=== PATIENT | male | born 1960 | race Two or more races ===

== ENCOUNTER → 2017-10-25 | Outpatient (CLI) | payer MEDICARE, OTHER | END | disposition home or self-care (01) | LOC: Rad HDHVI 14:02 | PROVIDERS: ATTEND Internal Medicine Cardiovascular Disease | DX: E78.2 Mixed hyperlipidemia (principal) | CPT/HCPCS: 93306 ==

== ENCOUNTER → 2017-11-03 | Outpatient (CLI) | payer OTHER ==
[~2017-11-03] MED LIST: ADENOSINE 61 MG in GIVE UN-DILUTED 0 ML IV ONE; ADENOSINE 90 MG/30 ML INJ IV ONE
== END | disposition home or self-care (01) ==
LOC: Rad HDHVI 09:23
PROVIDERS: ATTEND Internal Medicine Cardiovascular Disease
DX: Z01.810 Encounter for preprocedural cardiovascular examination (principal); J44.9 Chronic obstructive pulmonary disease, unspecified; E78.2 Mixed hyperlipidemia
CPT/HCPCS: 78452; 93005; 96374; 96375; A9500; J0153

== ENCOUNTER → 2018-01-12 | Outpatient (CLI) | payer MEDICARE, OTHER ==
[~2018-01-12] MED LIST changes: -ADENOSINE 61 MG in GIVE UN-DILUTED 0 ML IV ONE; -ADENOSINE 90 MG/30 ML INJ IV ONE; +IOHEXOL 350 MG/ML 100ML IJ ONE
[2018-01-12 09:45] VITALS: BP 149/88
[2018-01-12 10:10] VITALS: BP 143/97
== END | disposition home or self-care (01) ==
LOC: Rad HDHVI 09:26
PROVIDERS: ATTEND Internal Medicine Cardiovascular Disease
DX: I71.4 Abdominal aortic aneurysm, without rupture (principal); I70.0 Atherosclerosis of aorta
CPT/HCPCS: 74175; 82565; G0463; Q9967

== ENCOUNTER → 2019-12-03 | Outpatient (CLI) | payer MEDICARE ==
[~2019-12-03] VITALS: Ht 175.3 cm; Wt 68.0 kg
[2019-12-03 11:26] LABS: Urine Blood Negative /uL (Negative); Urine Specific Gravity 1.006 (1.001-1.035)
[2019-12-03 11:27] LABS: Basophils # (auto) 0.1 uL; Basophils % (auto) 0.9 % (0.0-2.0); Eosinophils # (auto) 0.1 uL; Eosinophils % (auto) 1.4 % (0.0-7.0); Lymphocytes # (auto) 1.7 uL; Neutrophils # (auto) 3.5 uL; Nucleated Red Blood Cells % 0.2 %
[2019-12-03 11:38] LABS: Hemoglobin 16.6 g/dL (13.5-17.5); Lymphocytes % (auto) 29.3 % (10.0-50.0); Mean Corpuscular Hemoglobin 34.6 pg (28.0-32.0); Mean Corpuscular Hgb Conc. 34.6 g/dL (32.0-36.0); Mean Corpuscular Volume 100.1 fL (80.0-100.0); Monocytes # (auto) 0.5 uL; Monocytes % (auto) 8.1 % (0.0-12.0); Neutrophils % (auto) 60.3 % (37.0-80.0); Platelet Count (auto) 171 10^3/uL (140-450); Red Cell Distribution Width 15.3 % (11.8-14.3); White Blood Cell 5.9 10^3/uL (4.4-10.8)
[2019-12-03 11:50] LABS: Albumin 3.5 g/dL (3.4-5.0); Calcium 8.9 mg/dL (8.5-10.1); Potassium 4.4 mmol/L (3.5-5.1)
[2019-12-03 11:55] LABS: BUN/Creatinine Ratio 14.1; Bilirubin, Total 0.4 mg/dL (0.2-1.0); Total Protein 7.3 g/dL (6.4-8.2)
[2019-12-03 12:22] LABS: Free T4 (Free Thyroxine) 1.06 ng/dL (0.89-1.76); Prostate Specific Antigen 0.63 ng/mL (0.0-4.0)
== END | disposition home or self-care (01) ==
LOC: Rad HDHVI 09:05
PROVIDERS: ATTEND Internal Medicine Cardiovascular Disease
DX: I34.0 Nonrheumatic mitral (valve) insufficiency (principal); J44.9 Chronic obstructive pulmonary disease, unspecified; R07.89 Other chest pain; I10 Essential (primary) hypertension; E03.9 Hypothyroidism, unspecified; K90.9 Intestinal malabsorption, unspecified; C61 Malignant neoplasm of prostate; E29.1 Testicular hypofunction; N39.0 Urinary tract infection, site not specified; D51.9 Vitamin B12 deficiency anemia, unspecified; Z79.899 Other long term (current) drug therapy; Z95.5 Presence of coronary angioplasty implant and graft
CPT/HCPCS: 36415; 78452; 80053; 80061; 81003; 82306; 82607; 83036; 84153; 84403; 84439; 84443; 85025; 93017; 93306; 96374; A9500

== ENCOUNTER → 2019-12-04 | Outpatient (CLI) | payer MEDICARE ==
[2019-12-04 09:10] VITALS: BP 140/95
--- NOTE | 2019-12-04 09:10 | NUR ---
Discharge Instructions See e-MAR for any mediations given with this visit. Patient education given on disease process. Patient verbalized understanding. Previous labs reviewed. Patient discharged in stable condition with after care instructions and follow up appointment. EDUCATED PATIENT TO INCREASE WATER INTAKE VERBALIZED UNDERSTANDING Addendum: 12/04/19 at 0945 by YAMINI PARMAR RN [place] PT DISCHARGED AT [id number]
--- NOTE | 2019-12-04 09:15 | NUR ---
IV insertion IV access obtained, via clean sterile technique by inserting 20 gauge catheter at after attempt(s). IV secured properly. No trauma to site. Patient tolerated procedure well.
--- NOTE | 2019-12-04 09:33 | NUR ---
IV removal IV DC'd with sterile technique, catheter fully intact. Pressure dressing applied to site. Patient tolerated procedure well. Discharged with aftercare instructions per MD. NOTE:
[2019-12-04 09:36] VITALS: BP 132/91
== END | disposition home or self-care (01) ==
LOC: Rad HDHVI 09:03
PROVIDERS: ATTEND Internal Medicine Cardiovascular Disease
DX: M79.606 Pain in leg, unspecified (principal); I72.9 Aneurysm of unspecified site; M54.9 Dorsalgia, unspecified
CPT/HCPCS: 74175; G0463; Q9967

== ENCOUNTER → 2021-01-19 | Outpatient (CLI) | payer MEDICARE ==
[~2021-01-19] VITALS: Ht 175.3 cm; Wt 65.8 kg
[~2021-01-19] MED LIST changes: +ADENOSINE 55 MG in GIVE UN-DILUTED 0 ML IV ONE; +ADENOSINE 90 MG/30 ML INJ IV ONE; -IOHEXOL 350 MG/ML 100ML IJ ONE
[2021-01-19 11:42] LABS: Urine Blood Negative /uL (Negative); Urine Specific Gravity 1.006 (1.001-1.035)
[2021-01-19 11:48] LABS: Basophils # (auto) 0 10 ^3/uL (0-0.2); Eosinophils # (auto) 0 10 ^3/uL (0-0.8); Lymphocytes # (auto) 1.1 10 ^3/uL (0.4-5.4); Monocytes # (auto) 0.4 10 ^3/uL (0-1.3); Neutrophils # (auto) 4.5 10 ^3/uL (1.6-8.6); Neutrophils % (auto) 73.2 % (37.0-80.0); White Blood Cell 6.1 10^3/uL (4.4-10.8)
[2021-01-19 11:50] LABS: Basophils % (auto) 0.8 % (0.0-2.0); Eosinophils % (auto) 0.6 % (0.0-7.0); Hematocrit 45.2 % (41.0-53.0); Lymphocytes % (auto) 18.3 % (10.0-50.0); Mean Corpuscular Hgb Conc. 35.3 g/dL (32.0-36.0); Mean Corpuscular Volume 101.9 fL (80.0-100.0); Monocytes % (auto) 7.1 % (0.0-12.0); Platelet Count (auto) 193 10^3/uL (140-450); Red Blood Cells 4.44 10^6/uL (4.5-5.90); Red Cell Distribution Width 13.7 % (11.8-14.3)
[2021-01-19 12:00] LABS: Calcium 8.8 mg/dL (8.5-10.1); Potassium 4.4 mmol/L (3.5-5.1)
[2021-01-19 12:15] LABS: BUN/Creatinine Ratio 16.4
== END | disposition home or self-care (01) ==
LOC: Rad HDHVI 08:06
PROVIDERS: ATTEND Internal Medicine Cardiovascular Disease
DX: I25.10 Atherosclerotic heart disease of native coronary artery without angina pectoris (principal); I10 Essential (primary) hypertension; D64.9 Anemia, unspecified; N39.0 Urinary tract infection, site not specified; F17.210 Nicotine dependence, cigarettes, uncomplicated; Z82.49 Family history of ischemic heart disease and other diseases of the circulatory system
CPT/HCPCS: 36415; 78452; 80048; 81003; 85025; 93005; 96374; 96375; A9500; J0153

== ENCOUNTER 2021-01-30 14:50 | Inpatient (IN) | payer MEDICARE ==
[~2021-01-30] VITALS: Ht 175.3 cm; Wt 58.4 kg
[2021-01-30 15:19] LABS: Basophils # (auto) 0.1 10 ^3/uL (0-0.2); Eosinophils # (auto) 0.1 10 ^3/uL (0-0.8); Hematocrit 44.9 % (41.0-53.0); Mean Corpuscular Hemoglobin 36.3 pg (28.0-32.0); Monocytes # (auto) 0.6 10 ^3/uL (0-1.3); Monocytes % (auto) 10.8 % (0.0-12.0); Nucleated Red Blood Cells % 0.1 %
[2021-01-30 15:21] LABS: Eosinophils % (auto) 1.8 % (0.0-7.0); Lymphocytes # (auto) 1.9 10 ^3/uL (0.4-5.4); Lymphocytes % (auto) 32.2 % (10.0-50.0); Mean Corpuscular Hgb Conc. 35.6 g/dL (32.0-36.0); Mean Corpuscular Volume 101.8 fL (80.0-100.0); Neutrophils # (auto) 3.2 10 ^3/uL (1.6-8.6); Neutrophils % (auto) 54.2 % (37.0-80.0); Platelet Count (auto) 199 10^3/uL (140-450); Red Blood Cells 4.41 10^6/uL (4.5-5.90); Red Cell Distribution Width 13.7 % (11.8-14.3)
[2021-01-30 15:53] LABS: Albumin 3.6 g/dL (3.4-5.0); Potassium 3.8 mmol/L (3.5-5.1)
[2021-01-30 15:56] LABS: BUN/Creatinine Ratio 16.9; Bilirubin, Total 0.4 mg/dL (0.2-1.0); Total Protein 7.2 g/dL (6.4-8.2)
[2021-01-30] MEDS ORDERED: DOCUSATE SOD 100 MG CAP PO PRN (18:45)
[2021-01-30] MEDS ORDERED: ONDANSETRON HCL 4 MG/2 ML VIAL IV PRN (18:45)
[2021-01-30] MEDS ORDERED: NITROGLYCERIN 0.4 MG SL TAB SL PRN (18:45)
[2021-01-30] MEDS ORDERED: IPRATROPIUM BROM 0.5 MG/2.5ML INH SOL NEB SCH (18:45)
[2021-01-30] MEDS: MORPHINE SULF INJ 2 MG/ML SYRINGE 1ML IV PRN ×2 (19:40→21:52)
[2021-01-30] MEDS ORDERED: amLODIPine BESYLATE 5 MG TAB PO SCH (22:00)
[2021-01-30] MEDS: IPRATROPIUM BROM 0.5 MG/2.5ML INH SOL NEB SCH (22:23)
[2021-01-30 23:33] VITALS: BP 156/105
[2021-01-31] MEDS ORDERED: OXYC325T14 PO (00:01)
[2021-01-31] MEDS ORDERED: METH750T22 PO (00:01)
[2021-01-31] MEDS ORDERED: ACET-1156 PO (00:11)
[2021-01-31] MEDS ORDERED: amLODIPine BESYLATE 5 MG TAB PO ONE (00:30)
[2021-01-31 05:00] VITALS: BP 137/77
[2021-01-31] MEDS: IPRATROPIUM BROM 0.5 MG/2.5ML INH SOL NEB SCH ×3 (06:51→22:13)
[2021-01-31 07:48] LABS: Eosinophils # (auto) 0.1 10 ^3/uL (0-0.8); Eosinophils % (auto) 2.4 % (0.0-7.0); Hemoglobin 16.4 g/dL (13.5-17.5); Lymphocytes # (auto) 1.4 10 ^3/uL (0.4-5.4); White Blood Cell 6.2 10^3/uL (4.4-10.8)
[2021-01-31 07:51] LABS: Basophils # (auto) 0 10 ^3/uL (0-0.2); Basophils % (auto) 0.8 % (0.0-2.0); Hematocrit 47.3 % (41.0-53.0); Lymphocytes % (auto) 22.5 % (10.0-50.0); Mean Corpuscular Hemoglobin 35.1 pg (28.0-32.0); Mean Corpuscular Hgb Conc. 34.7 g/dL (32.0-36.0); Mean Corpuscular Volume 101.2 fL (80.0-100.0); Monocytes # (auto) 0.5 10 ^3/uL (0-1.3); Monocytes % (auto) 8.1 % (0.0-12.0); Neutrophils # (auto) 4.1 10 ^3/uL (1.6-8.6); Neutrophils % (auto) 66.2 % (37.0-80.0); Nucleated Red Blood Cells % 0.1 %; Platelet Count (auto) 209 10^3/uL (140-450); Red Blood Cells 4.67 10^6/uL (4.5-5.90); Red Cell Distribution Width 13.6 % (11.8-14.3)
[2021-01-31 08:07] LABS: Potassium 4.2 mmol/L (3.5-5.1)
[2021-01-31 08:09] LABS: BUN/Creatinine Ratio 17.5
[2021-01-31 09:12] VITALS: BP 141/79
[2021-01-31] MEDS: amLODIPine BESYLATE 5 MG TAB PO SCH ×2 (09:36→22:17)
[2021-01-31] MEDS: ASPirin 81 mg TAB PO SCH (09:36)
[2021-01-31] MEDS: CLOPIDOGREL BISULFATE 75 MG TAB PO SCH (09:37)
[2021-01-31] MEDS: ENOXAPARIN SOD 60 MG/0.6 ML SYRINGE SC SCH (09:37)
[2021-01-31] MEDS: NICOTINE 21MG/24 HR TOPICAL PATCH TD SCH (09:37)
[2021-01-31] MEDS: HYDROcodone-ACET 10/325MG TAB PO PRN ×2 (09:44→17:33)
[2021-01-31] MEDS: HYDROmorphone HCL 2 MG/ML VL IV PRN ×2 (11:54→19:51)
[2021-01-31] MEDS: Ensure Enlive Strawberry 8oz Bottle PO SCH ×2 (12:47→18:14)
[2021-01-31 13:05] VITALS: BP 142/92
[2021-01-31 16:29] VITALS: BP 137/86
[2021-01-31 22:00] VITALS: BP 115/81
[2021-02-01] MEDS: HYDROcodone-ACET 10/325MG TAB PO PRN ×3 (01:40→19:40)
[2021-02-01] MEDS: HYDROmorphone HCL 2 MG/ML VL IV PRN ×3 (04:32→22:05)
[2021-02-01 05:00] VITALS: BP 136/90
[2021-02-01] MEDS: IPRATROPIUM BROM 0.5 MG/2.5ML INH SOL NEB SCH ×3 (06:44→22:17)
[2021-02-01 09:00] VITALS: BP 127/97
[2021-02-01] MEDS: ASPirin 81 mg TAB PO SCH (10:05)
[2021-02-01] MEDS: ENOXAPARIN SOD 60 MG/0.6 ML SYRINGE SC SCH (10:06)
[2021-02-01] MEDS: CLOPIDOGREL BISULFATE 75 MG TAB PO SCH (10:06)
[2021-02-01] MEDS: amLODIPine BESYLATE 5 MG TAB PO SCH ×2 (10:06→21:34)
[2021-02-01] MEDS: NICOTINE 21MG/24 HR TOPICAL PATCH TD SCH (10:07)
[2021-02-01] MEDS: Ensure Enlive Strawberry 8oz Bottle PO SCH ×3 (10:13→18:39)
[2021-02-01 13:00] VITALS: BP 119/71
[2021-02-01 17:15] VITALS: BP 130/82
[2021-02-01 22:00] VITALS: BP 147/91
[2021-02-02 05:00] VITALS: BP 135/69
[2021-02-02] MEDS: IPRATROPIUM BROM 0.5 MG/2.5ML INH SOL NEB SCH ×3 (06:51→18:34)
[2021-02-02 07:28] LABS: INR 0.99 (0.9-1.15); Partial Thromboplastin Time 28.1 sec (23.0-31.2)
[2021-02-02] MEDS: Ensure Enlive Strawberry 8oz Bottle PO SCH ×3 (08:00→18:21)
[2021-02-02 08:54] VITALS: BP 128/86
[2021-02-02] MEDS: ENOXAPARIN SOD 60 MG/0.6 ML SYRINGE SC SCH (10:00)
[2021-02-02] MEDS: ASPirin 81 mg TAB PO SCH (10:16)
[2021-02-02] MEDS: CLOPIDOGREL BISULFATE 75 MG TAB PO SCH (10:16)
[2021-02-02] MEDS: amLODIPine BESYLATE 5 MG TAB PO SCH ×2 (10:16→23:41)
[2021-02-02] MEDS: NICOTINE 21MG/24 HR TOPICAL PATCH TD SCH (10:21)
[2021-02-02 11:36] LABS: Urine WBC None Seen /hpf (0 - 3)
[2021-02-02 11:56] LABS: Urine Amorphous Crystal FEW /hpf (None Seen); Urine Bacteria NONE SEEN /hpf (None Seen); Urine Blood Negative /uL (Negative); Urine Specific Gravity 1.008 (1.001-1.035)
[2021-02-02 13:00] VITALS: BP 124/80
[2021-02-02] MEDS ORDERED: ANGIOMAX 250 MG VIAL IV ONE (14:29)
[2021-02-02] MEDS ORDERED: fentaNYL CITRATE 100 MCG/2 ML VL ONE (14:30)
[2021-02-02] MEDS ORDERED: SODIUM CHL 0.9% 50 ML ONE (14:30)
[2021-02-02] MEDS ORDERED: LIDOCAINE 2%HCL (LOCAL ANESTH.) INJ 20ML MDV ONE (14:30)
[2021-02-02] MEDS ORDERED: MIDAZOLAM HCL 1MG/1ML-2 ML VIAL ONE (14:30)
[2021-02-02] MEDS ORDERED: IOHEXOL 350 MG/ML 100ML IJ ONE (15:15)
[2021-02-02 16:58] VITALS: BP 137/87
[2021-02-02] MEDS: HYDROmorphone HCL 2 MG/ML VL IV PRN (20:23)
[2021-02-02] MEDS: RIVAROXABAN 10 MG TAB PO SCH (23:41)
[2021-02-03] VITALS (7 sets, daily range): BP systolic 108–145; BP diastolic 63–89
[2021-02-03] MEDS: IPRATROPIUM BROM 0.5 MG/2.5ML INH SOL NEB SCH ×2 (06:43→14:00)
[2021-02-03] MEDS: Ensure Enlive Strawberry 8oz Bottle PO SCH ×2 (09:10→13:30)
[2021-02-03] MEDS: CLOPIDOGREL BISULFATE 75 MG TAB PO SCH (09:11)
[2021-02-03] MEDS: amLODIPine BESYLATE 5 MG TAB PO SCH (09:11)
[2021-02-03] MEDS: ASPirin 81 mg TAB PO SCH (09:11)
[2021-02-03] MEDS: RIVAROXABAN 10 MG TAB PO SCH (09:11)
[2021-02-03] MEDS: NICOTINE 21MG/24 HR TOPICAL PATCH TD SCH (09:12)
[2021-02-03] MEDS: HYDROcodone-ACET 10/325MG TAB PO PRN (09:13)
[2021-02-03] MEDS: HYDROmorphone HCL 2 MG/ML VL IV PRN (15:09)
== END 2021-02-03 18:05 | disposition home or self-care (01) | DRG 254 ==
LOC: ER 14:50 → OVERFLOW 18:44 → CENTRAL 23:34
PROVIDERS: ADMIT Internal Medicine Cardiovascular Disease; ATTEND Internal Medicine Cardiovascular Disease
PROC: B41GYZZ Fluoroscopy of Left Lower Extremity Arteries using Other Contrast (ICD-10-PCS; principal; 2021-02-02)
PROC: 047M3ZZ Dilation of Right Popliteal Artery, Percutaneous Approach (ICD-10-PCS; 2021-02-02)
PROC: B41FYZZ Fluoroscopy of Right Lower Extremity Arteries using Other Contrast (ICD-10-PCS; 2021-02-02)
PROC: 3E053PZ Introduction of Platelet Inhibitor into Peripheral Artery, Percutaneous Approach (ICD-10-PCS; 2021-02-02)
DX: I73.9 Peripheral vascular disease, unspecified (principal); I72.3 Aneurysm of iliac artery; I70.90 Unspecified atherosclerosis; J44.9 Chronic obstructive pulmonary disease, unspecified; Z20.822 Contact with and (suspected) exposure to COVID-19; Z82.0 Family history of epilepsy and other diseases of the nervous system; I10 Essential (primary) hypertension; F17.210 Nicotine dependence, cigarettes, uncomplicated; Z82.3 Family history of stroke; Z82.49 Family history of ischemic heart disease and other diseases of the circulatory system; Z82.5 Family history of asthma and other chronic lower respiratory diseases
CPT/HCPCS: 36415; 37224; 71045; 75716; 80048; 80053; 81001; 85025; 85610; 85730; 86850; 86900; 86901; 87426; 93926; 93970; 94640; 96374; 99152; 99153; G0378; J2250

== ENCOUNTER 2021-02-06 09:42 | Emergency (ER) | payer MEDICARE ==
[~2021-02-06] VITALS: Ht 175.3 cm; Wt 65.8 kg
[~2021-02-06 09:42] MED LIST changes: +ACET-1156 PO; -ADENOSINE 55 MG in GIVE UN-DILUTED 0 ML IV ONE; -ADENOSINE 90 MG/30 ML INJ IV ONE; +METH750T3 PO; +OXYC325T14 PO
[2021-02-06 13:42] VITALS: BP 108/61
== END 2021-02-06 13:58 | disposition home or self-care (01) ==
LOC: ER 09:42
DX: L60.0 Ingrowing nail (principal); I10 Essential (primary) hypertension; E78.5 Hyperlipidemia, unspecified; Z87.891 Personal history of nicotine dependence
CPT/HCPCS: 73630

== ENCOUNTER 2023-10-13 15:19 | Emergency (ER) | payer MEDICARE ==
[~2023-10-13] VITALS: Ht 170.2 cm; Wt 65.0 kg
[~2023-10-13 15:19] MED LIST changes: -ACET-1156 PO; +ACET-1881 PO; +METH-1182 PO; -METH750T3 PO
[2023-10-13 15:43] LABS: Basophils # (auto) 0.1 10 ^3/uL (0-0.2); Basophils % (auto) 0.9 % (0.0-2.0); Eosinophils # (auto) 0.1 10 ^3/uL (0-0.8); Hematocrit 45.4 % (41.0-53.0); Hemoglobin 15.4 g/dL (13.5-17.5); Lymphocytes # (auto) 1.8 10 ^3/uL (0.4-5.4); Lymphocytes % (auto) 21.2 % (10.0-50.0); Mean Corpuscular Hemoglobin 31.9 pg (28.0-32.0); Mean Corpuscular Hgb Conc. 33.9 g/dL (32.0-36.0); Mean Corpuscular Volume 94.1 fL (80.0-100.0); Monocytes # (auto) 0.7 10 ^3/uL (0-1.3); Monocytes % (auto) 8.2 % (0.0-12.0); Neutrophils # (auto) 5.7 10 ^3/uL (1.6-8.6); Neutrophils % (auto) 68.7 % (37.0-80.0); Red Blood Cells 4.83 10^6/uL (4.5-5.90); Red Cell Distribution Width 13.8 % (11.8-14.3); White Blood Cell 8.3 10^3/uL (4.4-10.8)
[2023-10-13 16:12] LABS: Alanine Aminotransferase 20 U/L (7-40); Albumin 4.4 g/dL (3.2-4.8); Alkaline Phosphatase 75 U/L (46-116); Anion Gap 8 (5-15); Aspartate Aminotransferase 14 U/L (13-40); BUN/Creatinine Ratio 13.4 (10.0-20.0); Blood Urea Nitrogen 11 mg/dL (9-23); Calcium 9.8 mg/dL (8.5-10.1); Carbon Dioxide 27 mmol/L (20-30); Chloride 104 mmol/L (98-107); Glucose 86 mg/dL (74-106); Potassium 3.8 mmol/L (3.5-5.1); Sodium 139 mmol/L (136-145)
[2023-10-13 16:13] LABS: Bilirubin, Total 0.2 mg/dL (0.2-1.0); Total Protein 6.9 g/dL (5.7-8.2)
[2023-10-13] MEDS ORDERED: IOHEXOL 300 MG/ML 100ML BOTTLE IJ ONE (22:30)
[2023-10-13 22:40] VITALS: BP 160/110; PULSE 89; RESP 17; TEMP 98.1; O2SAT 94
== END 2023-10-13 22:40 | disposition home or self-care (01) ==
LOC: ER 15:19
DX: I72.3 Aneurysm of iliac artery (principal); M79.605 Pain in left leg; M79.604 Pain in right leg; R42 Dizziness and giddiness; E78.5 Hyperlipidemia, unspecified; I10 Essential (primary) hypertension; Z87.891 Personal history of nicotine dependence
CPT/HCPCS: 36415; 71046; 74177; 80053; 84484; 85025; 93005; 93970; 99285; Q9967